=== PATIENT | female | born 1965 | race Caucasian/White ===

== ENCOUNTER 2021-06-26 14:22 | Outpatient (CLI) | payer OTHER | END 2021-06-26 14:23 | disposition home or self-care (01) | LOC: BICMAMMO 14:22 | PROVIDERS: ATTEND Registered Nurse | DX: Z12.31 Encounter for screening mammogram for malignant neoplasm of breast (principal); Z13.820 Encounter for screening for osteoporosis; Z78.0 Asymptomatic menopausal state | CPT/HCPCS: 77063; 77067; 77080 ==

== ENCOUNTER 2022-04-15 10:39 | Outpatient (CLI) | payer OTHER ==
[~2022-04-15 10:39] MED LIST: Iopamidol-370 76% 500 ML 1 ML ONE
== END 2022-04-15 10:40 | disposition home or self-care (01) ==
LOC: BICCT 10:39
PROVIDERS: ATTEND Surgery
DX: C20 Malignant neoplasm of rectum (principal)
CPT/HCPCS: 74177; 82565; Q9967

== ENCOUNTER 2022-04-27 13:08 | Outpatient (CLI) | payer OTHER ==
[~2022-04-27 13:08] MED LIST changes: +Iopamidol 370 76% 100 ML VIAL ONE; -Iopamidol-370 76% 500 ML 1 ML ONE
== END 2022-04-27 13:09 | disposition home or self-care (01) ==
LOC: CT 13:08
PROVIDERS: ATTEND Internal Medicine
DX: C20 Malignant neoplasm of rectum (principal); N28.89 Other specified disorders of kidney and ureter; R91.8 Other nonspecific abnormal finding of lung field
CPT/HCPCS: 71260; 74178; Q9967

== ENCOUNTER → 2022-05-12 | Day surgery (SDC) | payer OTHER ==
[2022-05-07 15:31] VITALS: BMI 46.7
[2022-05-12 08:54] LABS: PTT 30.4 sec (22.9-36.1); Prothrombin Time 13.6 sec (12.0-14.7)
[2022-05-12 09:04] VITALS: BP 126/86; TEMP 97.2
== END | disposition home or self-care (01) ==
LOC: CT 08:15
PROVIDERS: ATTEND Internal Medicine
PROC: 0TB03ZX Excision of Right Kidney, Percutaneous Approach, Diagnostic (ICD-10-PCS; principal; 2022-05-12)
DX: C64.1 Malignant neoplasm of right kidney, except renal pelvis (principal); C20 Malignant neoplasm of rectum; I10 Essential (primary) hypertension; E78.5 Hyperlipidemia, unspecified; E03.9 Hypothyroidism, unspecified; Z87.891 Personal history of nicotine dependence; Z79.899 Other long term (current) drug therapy
CPT/HCPCS: 50200; 77002; 85610; 85730; 88305; 88333

== ENCOUNTER 2022-05-14 14:38 | Outpatient (CLI) | payer OTHER ==
[2022-05-14 15:41] LABS: #Eosinphils 0.2 10x3/uL (0.0-0.5); #Monocytes 0.7 10x3/uL (0.0-1.1); #Neutrophils 4.5 10x3/uL (1.5-8.4); %Basophils 0.5 % (0.0-2.0); %Eosinophils 2.2 % (0.0-6.0); %Lymphocytes 31.5 % (18.0-47.0); %Monocytes 8.8 % (0.0-10.0); %Neutrophils 56.7 % (40.0-75.0); Hemoglobin 14.1 g/dL (12.0-15.5); Mean Corpuscular HGB CONC 33.6 g/dL (32.0-36.0); Mean Corpuscular Hemoglobin 30.5 pg (27.0-33.0); Mean Corpuscular Volume 90.7 fl (81.6-98.3); Mean Platelet Volume 9.8 fl (7.4-10.4); Platelet Count 384 10x3/uL (150-450); RBC Distribution Width 13.5 % (11.5-14.5); Red Blood Cell (RBC) Count 4.63 10x6/uL (3.90-5.03); White Blood Cell (WBC) Count 7.9 10x3/uL (3.5-10.5)
[2022-05-14 15:51] LABS: Anion Gap 15 mmol/L (10-20); BUN (Urea Nitrogen) 11 mg/dL (9.8-20.1); Calc. Creatinine Clearance 0 mL/min (70-130); Carbon Dioxide 21 mmol/L (22-29); Chloride 105 mmol/L (98-107); Estimated GFR 91; Glucose 117 mg/dL (70-105); Potassium 4.3 mmol/L (3.5-5.1); Sodium 137 mmol/L (136-145)
== END 2022-05-14 14:39 | disposition home or self-care (01) ==
LOC: LABBT 14:38
PROVIDERS: ATTEND Surgery
DX: Z01.818 Encounter for other preprocedural examination (principal); C20 Malignant neoplasm of rectum
CPT/HCPCS: 80048; 85025; 93005; 93010

== ENCOUNTER 2022-06-25 09:07 | Outpatient (CLI) | payer OTHER | END 2022-06-25 09:08 | disposition home or self-care (01) | LOC: ULT 09:07 | PROVIDERS: ATTEND Internal Medicine | DX: C20 Malignant neoplasm of rectum (principal); C64.1 Malignant neoplasm of right kidney, except renal pelvis; R60.0 Localized edema; M79.604 Pain in right leg; I82.491 Acute embolism and thrombosis of other specified deep vein of right lower extremity ==

== ENCOUNTER 2023-01-25 13:30 | Inpatient (IN) | payer OTHER ==
[2023-01-25 14:29] VITALS: BMI 46.6
[2023-01-28] MEDS ORDERED: Ondansetron PF 4 MG/2 ML Vial ONE (07:04)
[2023-01-28] MEDS ORDERED: fentaNYL PF 100 MCG/2 ML SYRINGE ONE (07:04)
[2023-01-28] MEDS ORDERED: Lidocaine 1% PF 5 ML VIAL ONE ×2 (07:04→07:51)
[2023-01-28] MEDS ORDERED: Dexamethasone 20 MG/5 ML VIAL ONE ×2 (07:04→07:51)
[2023-01-28] MEDS ORDERED: PROPOFOL 20 ML ONE (07:04)
[2023-01-28] MEDS ORDERED: Midazolam HCl 2 mg/2 ml Vial ONE (07:25)
[2023-01-28] MEDS ORDERED: Acetaminophen 500 MG TAB ONE (07:26)
[2023-01-28] MEDS ORDERED: Scopolamine 1 mg/72 hour Patch ONE (07:26)
[2023-01-28] MEDS ORDERED: Famotidine/PF 20 mg/2ml Vial ONE (07:26)
[2023-01-28] MEDS ORDERED: Bupivacaine 0.25% HCL 30 ML VIAL ONE (07:33)
[2023-01-28] MEDS ORDERED: cefOXitin 2 GM VIAL ONE ×2 (07:34→10:08)
[2023-01-28] MEDS ORDERED: Sodium Chloride 0.9% 100 ML ONE ×2 (07:35→09:48)
[2023-01-28] MEDS ORDERED: KETAMINE 100 MG/ML (5ML VIAL) ONE (07:37)
[2023-01-28] MEDS ORDERED: Vasopressin 20 UNITS/ML VIAL ONE (07:37)
[2023-01-28] MEDS ORDERED: Albumin 5% 500 ML ONE (07:37)
[2023-01-28] MEDS ORDERED: PROPOFOL 200 MG/20 ML VIAL ONE (07:51)
[2023-01-28] MEDS ORDERED: Rocuronium Bromide 10 MG/ML (10ML VIAL) ONE ×2 (07:51→09:44)
[2023-01-28] MEDS ORDERED: Albuterol HFA (OR) 200 PUFF INH ONE (07:51)
[2023-01-28] MEDS ORDERED: Ketorolac Tromethamine 30 MG/ML VIAL ONE ×2 (07:51→10:57)
[2023-01-28] MEDS ORDERED: ePHEDrine Sulfate 50 MG/10 ML VIAL ONE ×2 (07:51→08:20)
[2023-01-28] MEDS ORDERED: Dexmedetomidine 200 MCG/2 ML VIAL ONE (09:47)
[2023-01-28] MEDS ORDERED: fentaNYL 50 mcg/mL 1 mL Vial ONE ×2 (10:17→13:22)
[2023-01-28] MEDS ORDERED: SUGAMMADEX SODIUM 200 MG/2 ML VIAL ONE ×2 (10:34→11:02)
[2023-01-28] MEDS ORDERED: Promethazine HCl 25 MG/ML VIAL IM PRN ×2 (10:37→15:02)
[2023-01-28] MEDS ORDERED: Ondansetron HCl/PF 4 MG/2 ML Vial IVP PRN (10:37)
[2023-01-28] MEDS ORDERED: Albuterol 200 PUFF (6.7GM INHALER) ONE (11:00)
[2023-01-28] MEDS ORDERED: Ondansetron PF 4 MG/2 ML Vial IVP PRN (15:02)
[2023-01-28] MEDS ORDERED: HYDROcodone/Acetaminophen 7.5/325 mg Tablet PO PRN (15:02)
[2023-01-28] MEDS ORDERED: Ipratropium/Albuterol 3 ML NEB NEB PRN (15:02)
[2023-01-28] MEDS ORDERED: hydrALAZINE 20 MG/ML VIAL SLOW IVP PRN (15:02)
[2023-01-28] MEDS: D5 1/2 NS w/20 mEq KCL 1,000 ML IV SCH ×2 (15:49→23:49)
[2023-01-28] MEDS: Fentanyl 100 MCG/2 ML VIAL SLOW IVP PRN ×2 (15:49→20:31)
[2023-01-28] MEDS ORDERED: FLU VACC QS2023-24(6MOS UP)/PF 60 MCG/0.5 ML SYRINGE IM ONE (16:15)
[2023-01-28] MEDS: cefOXitin 2 GM in Sodium Chloride 0.9% 100 ML IVPB SCH (17:05)
[2023-01-28] MEDS: Famotidine 20 MG TAB PO SCH (20:31)
[2023-01-28] MEDS: Famotidine/PF 20 mg/2ml Vial SLOW IVP SCH (22:49)
[2023-01-29] MEDS: cefOXitin 2 GM in Sodium Chloride 0.9% 100 ML IVPB SCH (03:00)
[2023-01-29 05:09] LABS: #Monocytes 0.5 thou/uL (0.11-0.59); #Neutrophils 5.4 thou/uL (1.40-6.50); %Basophils 0.2 % (0.0-1.0); %Lymphocytes 7.8 % (21.0-51.0); %Neutrophils 83.7 % (42.0-75.0); Hematocrit 25.6 % (36.0-47.0); Hemoglobin 7.8 g/dL (12.0-16.0); Mean Corpuscular HGB CONC 30.5 g/dL (32.0-36.0); Mean Corpuscular Hemoglobin 33.1 pg (27.0-31.0); Mean Corpuscular Volume 108.5 fl (78.0-98.0); Mean Platelet Volume 9.5 fL (7.4-10.4); Platelet Count 190 10x3/uL (130-400); RBC Distribution Width 13.6 % (11.5-14.5); Red Blood Cell (RBC) Count 2.36 mill/uL (4.20-5.40); White Blood Cell (WBC) Count 6.5 10x3/uL (4.8-10.8)
[2023-01-29 05:42] LABS: Anion Gap 9 mmol/L (10-20); BUN (Urea Nitrogen) 9 mg/dL (9.8-20.1); Calc. Creatinine Clearance 126 mL/min (70-130); Calcium 7.2 mg/dL (7.8-10.44); Carbon Dioxide 20 mmol/L (22-29); Chloride 105 mmol/L (98-107); Estimated GFR 59; Sodium 127 mmol/L (136-145)
[2023-01-29] MEDS: Levothyroxine Sodium 50 MCG TAB PO SCH (06:01)
[2023-01-29 08:59] LABS: Potassium 3.8 mmol/L (3.5-5.1)
[2023-01-29 09:00] LABS: Glucose 115 mg/dL (70-105)
[2023-01-29] MEDS: Ketorolac Tromethamine 30 MG/ML VIAL IVP PRN ×3 (09:28→22:34)
[2023-01-29] MEDS: Famotidine 20 MG TAB PO SCH ×2 (09:29→20:16)
[2023-01-29] MEDS: FLUoxetine HCl 20 MG CAP PO SCH (09:29)
[2023-01-29] MEDS: Famotidine/PF 20 mg/2ml Vial SLOW IVP SCH ×2 (09:29→20:16)
[2023-01-29] MEDS: D5 1/2 NS w/20 mEq KCL 1,000 ML IV SCH (09:30)
[2023-01-29] MEDS: Sodium Chloride 0.9% 1,000 ML IV SCH ×2 (16:13→22:41)
[2023-01-29 16:31] LABS: #Monocytes 0.9 thou/uL (0.11-0.59); #Neutrophils 8.9 thou/uL (1.40-6.50); %Basophils 0.2 % (0.0-1.0); %Eosinophils 0.1 % (0.0-10.0); %Lymphocytes 10.4 % (21.0-51.0); %Monocytes 8.1 % (0.0-10.0); %Neutrophils 80.8 % (42.0-75.0); Mean Corpuscular HGB CONC 32.1 g/dL (32.0-36.0); Mean Corpuscular Hemoglobin 32.4 pg (27.0-31.0); Mean Platelet Volume 9.3 fL (7.4-10.4); Platelet Count 286 10x3/uL (130-400); RBC Distribution Width 12.9 % (11.5-14.5); Red Blood Cell (RBC) Count 3.52 mill/uL (4.20-5.40)
[2023-01-29 16:40] LABS: Hematocrit 35.5 % (36.0-47.0); Hemoglobin 11.4 g/dL (12.0-16.0)
[2023-01-29 16:41] LABS: Mean Corpuscular Volume 100.9 fl (78.0-98.0)
[2023-01-30] MEDS: Ketorolac Tromethamine 30 MG/ML VIAL IVP PRN ×2 (04:55→11:09)
[2023-01-30] MEDS: Levothyroxine Sodium 50 MCG TAB PO SCH (05:01)
[2023-01-30 05:29] LABS: #Eosinphils 0.1 thou/uL (0.0-0.7); #Monocytes 0.6 thou/uL (0.11-0.59); #Neutrophils 5.2 thou/uL (1.40-6.50); %Basophils 0.1 % (0.0-1.0); %Eosinophils 1.4 % (0.0-10.0); %Lymphocytes 14.8 % (21.0-51.0); %Neutrophils 74.1 % (42.0-75.0); Hematocrit 32.4 % (36.0-47.0); Hemoglobin 10.5 g/dL (12.0-16.0); Mean Corpuscular HGB CONC 32.4 g/dL (32.0-36.0); Mean Corpuscular Hemoglobin 33.1 pg (27.0-31.0); Mean Corpuscular Volume 102.2 fl (78.0-98.0); Mean Platelet Volume 9.1 fL (7.4-10.4); Platelet Count 236 10x3/uL (130-400); RBC Distribution Width 12.9 % (11.5-14.5); Red Blood Cell (RBC) Count 3.17 mill/uL (4.20-5.40)
[2023-01-30 06:06] LABS: Anion Gap 11 mmol/L (10-20); BUN (Urea Nitrogen) 13 mg/dL (9.8-20.1); Calc. Creatinine Clearance 187 mL/min (70-130); Calcium 8.5 mg/dL (7.8-10.44); Carbon Dioxide 24 mmol/L (22-29); Chloride 109 mmol/L (98-107); Estimated GFR 95; Glucose 88 mg/dL (70-105); Potassium 3.7 mmol/L (3.5-5.1); Sodium 140 mmol/L (136-145)
[2023-01-30] MEDS: Sodium Chloride 0.9% 1,000 ML IV SCH (06:40)
[2023-01-30] MEDS: Famotidine 20 MG TAB PO SCH ×2 (08:56→20:17)
[2023-01-30] MEDS: FLUoxetine HCl 20 MG CAP PO SCH (08:56)
[2023-01-30] MEDS: Famotidine/PF 20 mg/2ml Vial SLOW IVP SCH ×2 (09:02→20:17)
[2023-01-30] MEDS: HYDROcodone/Acetaminophen 7.5/325 mg Tablet PO PRN (18:00)
[2023-01-31] MEDS: Ketorolac Tromethamine 30 MG/ML VIAL IVP PRN (01:29)
[2023-01-31] MEDS: HYDROcodone/Acetaminophen 7.5/325 mg Tablet PO PRN ×2 (01:29→08:52)
[2023-01-31] MEDS: Levothyroxine Sodium 50 MCG TAB PO SCH (05:23)
[2023-01-31] MEDS: FLUoxetine HCl 20 MG CAP PO SCH (08:45)
[2023-01-31] MEDS: Famotidine 20 MG TAB PO SCH (08:45)
[2023-01-31] MEDS: Famotidine/PF 20 mg/2ml Vial SLOW IVP SCH (08:52)
[2023-01-31 08:57] VITALS: BP 105/70; TEMP 98.7
== END 2023-01-31 10:43 | disposition home or self-care (01) | DRG 330 ==
LOC: SURG A 01-28 05:58 → SURG B 01-28 14:38
PROVIDERS: ADMIT Surgery; ATTEND Surgery
PROC: 0DBP4ZZ Excision of Rectum, Percutaneous Endoscopic Approach (ICD-10-PCS; principal; 2023-01-28)
PROC: 0D1B4Z4 Bypass Ileum to Cutaneous, Percutaneous Endoscopic Approach (ICD-10-PCS; 2023-01-28)
PROC: 8E0W4CZ Robotic Assisted Procedure of Trunk Region, Percutaneous Endoscopic Approach (ICD-10-PCS; 2023-01-28)
DX: C20 Malignant neoplasm of rectum (principal); K63.3 Ulcer of intestine; I10 Essential (primary) hypertension; E78.5 Hyperlipidemia, unspecified; E03.9 Hypothyroidism, unspecified; G47.33 Obstructive sleep apnea (adult) (pediatric); F32.A Depression, unspecified; M19.90 Unspecified osteoarthritis, unspecified site; Z79.899 Other long term (current) drug therapy
CPT/HCPCS: 36415; 36416; 80048; 85025; 88305; 88309; 97139; A4649; J0694; J1100; J1650; J1885; J2250; J2405; J2704; J3010; J3480; J3490; J7050; P9045; S0020; S0028

== ENCOUNTER 2023-01-25 13:39 | Outpatient (CLI) | payer OTHER ==
[2023-01-25 14:40] LABS: #Eosinphils 0.1 10x3/uL (0.0-0.5); #Monocytes 0.4 10x3/uL (0.0-1.1); %Basophils 0.4 % (0.0-2.0); %Eosinophils 2.1 % (0.0-6.0); %Lymphocytes 18.6 % (18.0-47.0); %Monocytes 6.6 % (0.0-10.0); %Neutrophils 71.9 % (40.0-75.0); Hematocrit 41.3 % (34.9-44.5); Hemoglobin 13.7 g/dL (12.0-15.5); Mean Corpuscular HGB CONC 33.2 g/dL (32.0-36.0); Mean Corpuscular Hemoglobin 32.1 pg (27.0-33.0); Mean Corpuscular Volume 96.7 fl (81.6-98.3); Mean Platelet Volume 9.1 fl (7.4-10.4); Platelet Count 343 10x3/uL (150-450); Red Blood Cell (RBC) Count 4.27 10x6/uL (3.90-5.03); White Blood Cell (WBC) Count 5.6 10x3/uL (3.5-10.5)
[2023-01-25 14:51] LABS: Anion Gap 15 mmol/L (10-20); BUN (Urea Nitrogen) 13 mg/dL (9.8-20.1); Calc. Creatinine Clearance 0 mL/min (70-130); Calcium 9.2 mg/dL (7.8-10.44); Carbon Dioxide 24 mmol/L (22-29); Chloride 106 mmol/L (98-107); Estimated GFR 90; Glucose 120 mg/dL (70-105); Potassium 3.7 mmol/L (3.5-5.1); Sodium 141 mmol/L (136-145)
== END 2023-01-25 13:40 | disposition home or self-care (01) ==
LOC: LABBT 13:39
PROVIDERS: ATTEND Surgery
DX: Z01.818 Encounter for other preprocedural examination (principal); C20 Malignant neoplasm of rectum
CPT/HCPCS: 80048; 85025; 93005; 93010

== ENCOUNTER 2023-03-11 08:18 | Outpatient (CLI) | payer OTHER ==
[2023-03-11] MEDS ORDERED: MD-Gastroview 120 ML BOT ONE (08:54)
== END 2023-03-11 08:19 | disposition home or self-care (01) ==
LOC: RAD 08:18
PROVIDERS: ATTEND Surgery
DX: K94.13 Enterostomy malfunction (principal); C20 Malignant neoplasm of rectum; Z98.890 Other specified postprocedural states
CPT/HCPCS: 74280; Q9963

== ENCOUNTER 2023-07-20 13:12 | Outpatient (CLI) | payer OTHER | END 2023-07-20 13:13 | disposition home or self-care (01) | LOC: BICCT 13:12 | PROVIDERS: ATTEND Internal Medicine | DX: C18.9 Malignant neoplasm of colon, unspecified (principal); C78.7 Secondary malignant neoplasm of liver and intrahepatic bile duct; I87.8 Other specified disorders of veins; N28.89 Other specified disorders of kidney and ureter; Z98.890 Other specified postprocedural states | CPT/HCPCS: 71260; 74177; 82565; Q9967 ==

== ENCOUNTER 2023-12-02 15:53 | Inpatient (IN) | payer OTHER ==
[~2023-12-02 15:53] MED LIST changes: -Iopamidol 370 76% 100 ML VIAL ONE; +Iopamidol-370 76% 500 ML MDV (1 ML CHARGE) ONE
[2023-12-02 16:55] LABS: #Basophils Less than 0.03 10x3/uL (0.0-0.2); %Basophils 0.1 % (0.0-1.0); %Eosinophils 0.6 % (0.0-10.0); %Lymphocytes 18.8 % (21.0-51.0); %Monocytes 7.2 % (0.0-10.0); %Neutrophils 72.7 % (42.0-75.0); Hematocrit 38.4 % (36.0-47.0); Hemoglobin 12.5 g/dL (12.0-16.0); Mean Corpuscular HGB CONC 32.6 g/dL (32.0-36.0); Mean Corpuscular Hemoglobin 31.7 pg (27.0-31.0); Mean Corpuscular Volume 97.5 fL (78.0-98.0); Mean Platelet Volume 9.1 fL (7.4-10.4); Platelet Count 408 10x3/uL (130-400); RBC Distribution Width 17.3 % (11.5-14.5); Red Blood Cell (RBC) Count 3.94 mill/uL (4.20-5.40)
[2023-12-02 17:15] LABS: ALT (SGPT) 9 U/L (8-55); AST (SGOT) 17 U/L (5-34); Albumin 2.9 g/dL (3.5-5.0); Alkaline Phosphatase 114 U/L (40-110); Anion Gap 16 mmol/L (10-20); BUN (Urea Nitrogen) 13 mg/dL (9.8-20.1); Calc. Creatinine Clearance 0 mL/min (70-130); Calcium 9.9 mg/dL (7.8-10.44); Carbon Dioxide 22 mmol/L (22-29); Chloride 103 mmol/L (98-107); Estimated GFR 77; Globulin 4.1 g/dL (2.4-3.5); Glucose 150 mg/dL (70-105); Lipase 13 U/L (8-78); Potassium 3.6 mmol/L (3.5-5.1); Sodium 137 mmol/L (136-145)
[2023-12-02] MEDS ORDERED: fentaNYL 50 mcg/mL 1 mL Vial ONE (19:33)
[2023-12-02 19:40] LABS: Bilirubin Negative (Negative); Blood, Urine 3+ (Negative); CAUTI Indications for Culture Dysuria,urgency,freq; Clarity Turbid (Clear); Glucose, Urine (Dipstick) Normal (Negative); Ketone, Urine Negative (Negative); Leukocyte 500 Leu/uL (Negative); Nitrite Negative (Negative); Protein, Urine (Dipstick) 20 mg/dL (Neg-Trace); RBC/HPF Greater than 50 HPF (0-3); Urobilinogen Normal mg/dL (Less than 2); pH, Urine 6.5 (5.0-9.0)
[2023-12-02 19:42] LABS: Bacteria/HPF 1+ HPF (None Seen); Specific Gravity, Urine 1.052 (1.002-1.036)
[2023-12-02 19:43] LABS: Urine Culture Reflex Yes Yes
[2023-12-02] MEDS ORDERED: cefTRIAXone (ROCEPHIN) 1 GM VIAL ONE (20:09)
[2023-12-02] MEDS ORDERED: Sodium Chloride 0.9% 100 ML ONE (20:09)
[2023-12-02 20:47] LABS: Lactic Acid 2.77 mmol/L (0.5-2.2)
[2023-12-02] MEDS ORDERED: Clotrimazole 1% Cream 15 GM TUBE TOP SCH (21:30)
[2023-12-02 22:49] LABS: Bacteria/HPF None Seen HPF (None Seen); Bilirubin Negative (Negative); Blood, Urine Negative (Negative); CAUTI Indications for Culture Dysuria,urgency,freq; Clarity Clear (Clear); Glucose, Urine (Dipstick) Normal (Negative); Ketone, Urine Negative (Negative); Leukocyte Negative Leu/uL (Negative); Nitrite Negative (Negative); Protein, Urine (Dipstick) 20 mg/dL (Neg-Trace); Urobilinogen Normal mg/dL (Less than 2); pH, Urine 6.5 (5.0-9.0)
[2023-12-02 22:51] LABS: Specific Gravity, Urine Greater than 1.060 (1.002-1.036)
[2023-12-02] MEDS ORDERED: Ondansetron PF 4 MG/2 ML Vial IVP PRN (22:53)
[2023-12-02 22:56] LABS: RBC/HPF 0-3 HPF (0-3); WBC/HPF 0-3 HPF (0-3)
[2023-12-02 22:57] LABS: Squamous Epithelial 0-3 HPF (0-3)
[2023-12-02 22:58] LABS: Urine Culture Reflex No No
[2023-12-03 00:02] LABS: #Basophils Less than 0.03 10x3/uL (0.0-0.2); %Basophils 0.3 % (0.0-1.0); %Eosinophils 0.6 % (0.0-10.0); %Lymphocytes 24.6 % (21.0-51.0); %Monocytes 10.4 % (0.0-10.0); %Neutrophils 63.9 % (42.0-75.0); Hematocrit 34.4 % (36.0-47.0); Hemoglobin 11.1 g/dL (12.0-16.0); Mean Corpuscular HGB CONC 32.3 g/dL (32.0-36.0); Mean Corpuscular Hemoglobin 31.4 pg (27.0-31.0); Mean Corpuscular Volume 97.5 fL (78.0-98.0); Mean Platelet Volume 9.2 fL (7.4-10.4); Platelet Count 322 10x3/uL (130-400); RBC Distribution Width 17.3 % (11.5-14.5); Red Blood Cell (RBC) Count 3.53 mill/uL (4.20-5.40)
[2023-12-03 00:28] LABS: Lactic Acid 2.05 mmol/L (0.5-2.2)
[2023-12-03] MEDS ORDERED: Acetaminophen 500 MG TAB ONE (03:59)
[2023-12-03] MEDS: Acetaminophen 325 MG TAB PO PRN (04:13)
[2023-12-03] MEDS ORDERED: Enoxaparin 100 MG (1 mL) SYRINGE ONE (04:14)
[2023-12-03] MEDS: Enoxaparin 100 MG (1 mL) SYRINGE SC SCH (04:16)
[2023-12-03 05:13] LABS: #Basophils Less than 0.03 10x3/uL (0.0-0.2); %Basophils 0.3 % (0.0-1.0); %Eosinophils 0.8 % (0.0-10.0); %Lymphocytes 18.8 % (21.0-51.0); %Neutrophils 68.8 % (42.0-75.0); Hematocrit 33.1 % (36.0-47.0); Hemoglobin 10.7 g/dL (12.0-16.0); Mean Corpuscular HGB CONC 32.3 g/dL (32.0-36.0); Mean Corpuscular Hemoglobin 31.9 pg (27.0-31.0); Mean Corpuscular Volume 98.8 fL (78.0-98.0); Mean Platelet Volume 9.1 fL (7.4-10.4); Platelet Count 314 10x3/uL (130-400); RBC Distribution Width 17.3 % (11.5-14.5); Red Blood Cell (RBC) Count 3.35 mill/uL (4.20-5.40)
[2023-12-03 05:43] LABS: Anion Gap 11 mmol/L (10-20); BUN (Urea Nitrogen) 11 mg/dL (9.8-20.1); Calc. Creatinine Clearance 150 mL/min (70-130); Calcium 8.8 mg/dL (7.8-10.44); Carbon Dioxide 26 mmol/L (22-29); Chloride 104 mmol/L (98-107); Estimated GFR 94; Glucose 112 mg/dL (70-105); Potassium 2.9 mmol/L (3.5-5.1); Sodium 138 mmol/L (136-145)
[2023-12-03] MEDS ORDERED: Electrolyte Replacement Protocol FS PRN (08:00)
[2023-12-03 08:08] VITALS: BMI 38.0
[2023-12-03] MEDS: Sodium Chloride 0.9% 1,000 ML IV SCH ×3 (08:12→09:53)
[2023-12-03] MEDS: Clotrimazole 1 % Cream 30 GM TUBE TOP SCH (08:12)
[2023-12-03] MEDS: Electrolyte Replacement Protocol 1 EACH FS ONE (08:13)
[2023-12-03] MEDS ORDERED: Albumin 25% 100 ML ONE (08:21)
[2023-12-03] MEDS ORDERED: Potassium Chloride 20 MEQ TAB ONE (08:21)
[2023-12-03] MEDS: Potassium Chloride 20 MEQ TAB PO SCH (09:00)
[2023-12-03] MEDS: Albumin 25% 25 GM (100 mL) BOT IVPB SCH (09:21)
[2023-12-03] MEDS: Enoxaparin 120 MG/0.8 ML SYRINGE SC SCH (17:31)
[2023-12-03] MEDS ORDERED: cefTRIAXone\\ROCEPHIN 1 GM in Sodium Chloride 0.9% 100 ML IVPB SCH (20:00)
[2023-12-03] MEDS: Tamsulosin HCl 0.4 MG CAP PO SCH (20:20)
[2023-12-04 04:37] LABS: #Basophils Less than 0.03 10x3/uL (0.0-0.2); %Basophils 0.5 % (0.0-1.0); %Lymphocytes 30.3 % (21.0-51.0); %Monocytes 11.8 % (0.0-10.0); %Neutrophils 54.9 % (42.0-75.0); Hematocrit 31.5 % (36.0-47.0); Hemoglobin 9.9 g/dL (12.0-16.0); Mean Corpuscular HGB CONC 31.4 g/dL (32.0-36.0); Mean Corpuscular Hemoglobin 31.8 pg (27.0-31.0); Mean Corpuscular Volume 101.3 fL (78.0-98.0); Mean Platelet Volume 8.8 fL (7.4-10.4); Platelet Count 269 10x3/uL (130-400); RBC Distribution Width 17.5 % (11.5-14.5); Red Blood Cell (RBC) Count 3.11 mill/uL (4.20-5.40)
[2023-12-04 04:53] LABS: Anion Gap 11 mmol/L (10-20); BUN (Urea Nitrogen) 9 mg/dL (9.8-20.1); Calc. Creatinine Clearance 154 mL/min (70-130); Calcium 8.8 mg/dL (7.8-10.44); Carbon Dioxide 26 mmol/L (22-29); Chloride 109 mmol/L (98-107); Estimated GFR 97; Glucose 96 mg/dL (70-105); Magnesium 1.8 mg/dL (1.6-2.6); Potassium 3.3 mmol/L (3.5-5.1); Sodium 143 mmol/L (136-145)
[2023-12-04] MEDS: Magnesium 2 GM/50 ML(in water) 2 GM in Premix 1 BAG IVPB SCH (06:17)
[2023-12-04] MEDS: Potassium Chloride 20 MEQ TAB PO SCH (06:18)
[2023-12-04] MEDS: Enoxaparin 120 MG/0.8 ML SYRINGE SC SCH (08:47)
[2023-12-04 13:23] VITALS: BMI 38.0
[2023-12-04] MEDS ORDERED: Loperamide HCl 2 MG CAP PO PRN (13:25)
[2023-12-04] MEDS: Loperamide HCl 2 MG CAP PO SCH (13:41)
[2023-12-05 04:25] LABS: #Basophils Less than 0.03 10x3/uL (0.0-0.2); %Basophils 0.3 % (0.0-1.0); %Eosinophils 1.7 % (0.0-10.0); %Lymphocytes 33.4 % (21.0-51.0); %Monocytes 10.8 % (0.0-10.0); %Neutrophils 53.5 % (42.0-75.0); Hematocrit 31.1 % (36.0-47.0); Hemoglobin 9.8 g/dL (12.0-16.0); Mean Corpuscular HGB CONC 31.5 g/dL (32.0-36.0); Mean Corpuscular Hemoglobin 31.4 pg (27.0-31.0); Mean Corpuscular Volume 99.7 fL (78.0-98.0); Mean Platelet Volume 8.9 fL (7.4-10.4); Platelet Count 272 10x3/uL (130-400); RBC Distribution Width 17.6 % (11.5-14.5); Red Blood Cell (RBC) Count 3.12 mill/uL (4.20-5.40)
[2023-12-05 04:48] LABS: Anion Gap 11 mmol/L (10-20); BUN (Urea Nitrogen) 7 mg/dL (9.8-20.1); Calc. Creatinine Clearance 166 mL/min (70-130); Calcium 8.6 mg/dL (7.8-10.44); Carbon Dioxide 26 mmol/L (22-29); Chloride 108 mmol/L (98-107); Estimated GFR 102; Glucose 97 mg/dL (70-105); Potassium 3.4 mmol/L (3.5-5.1); Sodium 142 mmol/L (136-145)
[2023-12-05] MEDS: Potassium Chloride 20 MEQ TAB PO SCH (05:48)
[2023-12-05] MEDS: Levothyroxine Sodium 50 MCG TAB PO SCH (05:48)
[2023-12-05] MEDS: FLUoxetine HCl 20 MG CAP PO SCH (09:25)
[2023-12-05] MEDS: Atorvastatin Calcium 20 MG TAB PO SCH (09:25)
[2023-12-05] MEDS: Cholestyramine/Aspartame 4 gm Packet PO SCH (10:24)
[2023-12-05 11:45] VITALS: BP 106/72; TEMP 98.8
== END 2023-12-05 11:37 | disposition home or self-care (01) | DRG 641 ==
LOC: ERS 15:53 → ERHOLD 22:15 → MSONC 12-03 12:36 → OBSVTOIN 12-04 09:16
PROVIDERS: ADMIT Internal Medicine; ATTEND Internal Medicine
PROC: 30233J1 Transfusion of Nonautologous Serum Albumin into Peripheral Vein, Percutaneous Approach (ICD-10-PCS; principal; 2023-12-04)
DX: E86.0 Dehydration (principal); N13.2 Hydronephrosis with renal and ureteral calculous obstruction; C20 Malignant neoplasm of rectum; C64.1 Malignant neoplasm of right kidney, except renal pelvis; N39.0 Urinary tract infection, site not specified; E87.6 Hypokalemia; E87.20 Acidosis, unspecified; E78.5 Hyperlipidemia, unspecified; E03.9 Hypothyroidism, unspecified; I10 Essential (primary) hypertension; G47.33 Obstructive sleep apnea (adult) (pediatric); R21 Rash and other nonspecific skin eruption; I95.9 Hypotension, unspecified; E66.9 Obesity, unspecified; Z88.8 Allergy status to other drugs, medicaments and biological substances; Z98.890 Other specified postprocedural states; Z80.51 Family history of malignant neoplasm of kidney; Z86.718 Personal history of other venous thrombosis and embolism; Z79.01 Long term (current) use of anticoagulants; Z79.899 Other long term (current) drug therapy; Z68.38 Body mass index [BMI] 38.0-38.9, adult
CPT/HCPCS: 36415; 36416; 74177; 80048; 80053; 81001; 83605; 83690; 83735; 83880; 85025; 87040; 87077; 87086; 87186; 93005; 96372; 96375; 97139; G0378; J0696; J1650; J3010; J3475; J7030; P9047; Q9967

== ENCOUNTER 2023-12-13 09:00 | Outpatient (CLI) | payer OTHER ==
[2023-12-13 16:02] LABS: #Basophils 0.03 10x3/uL (0.0-0.2); %Basophils 0.4 % (0.0-1.0); %Eosinophils 1.4 % (0.0-10.0); %Monocytes 8.7 % (0.0-10.0); Hematocrit 39.5 % (36.0-47.0); Hemoglobin 12.2 g/dL (12.0-16.0); Mean Corpuscular HGB CONC 30.9 g/dL (32.0-36.0); Mean Corpuscular Hemoglobin 32.4 pg (27.0-31.0); Mean Corpuscular Volume 105.1 fL (78.0-98.0); Mean Platelet Volume 8.5 fL (7.4-10.4); Platelet Count 493 10x3/uL (130-400); Red Blood Cell (RBC) Count 3.76 mill/uL (4.20-5.40)
[2023-12-13 16:15] LABS: INR-International Normal Ratio 1.2; Prothrombin Time 14.8 sec (12.0-14.7)
[2023-12-13 16:16] LABS: Anion Gap 15 mmol/L (10-20); BUN (Urea Nitrogen) 8 mg/dL (9.8-20.1); Calc. Creatinine Clearance 0 mL/min (70-130); Calcium 9.4 mg/dL (7.8-10.44); Carbon Dioxide 23 mmol/L (22-29); Chloride 108 mmol/L (98-107); Estimated GFR 93; Glucose 107 mg/dL (70-105); PTT 32.6 sec (22.9-36.1); Potassium 3.7 mmol/L (3.5-5.1); Sodium 142 mmol/L (136-145)
[2023-12-13 16:17] LABS: Bacteria/HPF None Seen HPF (None Seen); Bilirubin Negative (Negative); Blood, Urine 3+ (Negative); Calcium Oxalate Crystals 4+ HPF (None Seen); Clarity Turbid (Clear); Glucose, Urine (Dipstick) Normal (Negative); Ketone, Urine Negative (Negative); Leukocyte 250 Leu/uL (Negative); Nitrite Negative (Negative); Protein, Urine (Dipstick) 50 mg/dL (Neg-Trace); RBC/HPF Greater than 50 HPF (0-3); Specific Gravity, Urine 1.022 (1.002-1.036); Squamous Epithelial 0-3 HPF (0-3); Urobilinogen Normal mg/dL (Less than 2); pH, Urine 6.5 (5.0-9.0)
== END 2023-12-13 09:01 | disposition home or self-care (01) ==
LOC: LABBT 09:00
PROVIDERS: ATTEND Urology
DX: Z01.818 Encounter for other preprocedural examination (principal); N20.1 Calculus of ureter
CPT/HCPCS: 80048; 81001; 85025; 85610; 85730; 87086; 93005; 93010